=== PATIENT | female | born 1960 | race Caucasian/White ===

== ENCOUNTER → 2022-10-31 | Outpatient (CLI) | payer OTHER ==
--- NOTE | 2022-10-31 15:55 | MR ---
MRI thoracic spine without contrast. HISTORY: Mid back pain COMPARISON: None. TECHNIQUE: Multiplanar thoracic spine were obtained without contrast. FINDINGS: The thoracic vertebral segments are normal in height and alignment and there is no fracture subluxati on. There is no significant degenerative disc disease and there are no cervical disc herniations. The thoracic cord is normal in size and signal intensity and there is no thoracic spinal stenosis. The paraspinal soft tissues are unremarkable. IMPRESSION: No significant abnormality seen.
== END | disposition home or self-care (01) ==
LOC: RADMRIMAIN 15:02
PROVIDERS: ATTEND Internal Medicine
DX: M54.6 Pain in thoracic spine (principal); G89.29 Other chronic pain
CPT/HCPCS: 72146

== ENCOUNTER → 2022-11-17 | Outpatient (CLI) | payer OTHER ==
--- NOTE | 2022-11-17 22:15 | CTL ---
EXAMINATION TYPE: CT Low Dose Lung DATE OF EXAM ORDERED: 11/17/2022 HISTORY: Smoking. Lung cancer screening CT DLP: 63.[address] CTDI: 1.7 mGy Automated exposure control for dose reduction was used. SCREENING VISIT: Initial COMPARISON: None TECHNIQUE: Low dose computed tomography scan was performed through the chest at 1 mm thick sections a nd reconstructed images in the coronal plane at [address] DIAGNOSTIC QUALITY: Satisfactory FINDINGS: LUNG NODULES: None. LUNGS: COPD: Severity: None Fibrosis: Severity: None Lymph nodes: None Other findings: None RIGHT PLEURAL SPACE: Effusion: None Calcification: None Thickening: None Pneumothorax: None LEFT PLEURAL SPACE: Effusion: None Calcification: None Thickening: None Pneumothorax: None HEART: Heart Size: Normal Coronary calcification: Minimal Pericardial effusion: None OTHER FINDINGS: Upper abdomen: Normal Bony thorax: Normal Supraclavicular region: Normal Other: Ascending thoracic aorta at the level the main pulmonary artery measures 3.5 cm. The main pul monary artery at the bifurcation measures 2.7 cm. IMPRESSION: 1. No suspicious changes to suggest primary or metastatic neoplasm FOLLOW UP CT CHEST RECOMMENDATION: Low-dose CT chest one year CT LUNG RAD: Lung-Rad 1 Negative
== END | disposition home or self-care (01) ==
LOC: RADCTMAIN 12:35
PROVIDERS: ATTEND Internal Medicine
DX: Z12.2 Encounter for screening for malignant neoplasm of respiratory organs (principal); F17.210 Nicotine dependence, cigarettes, uncomplicated
CPT/HCPCS: 71271

== ENCOUNTER → 2022-12-01 | Outpatient (CLI) | payer OTHER ==
--- NOTE | 2022-12-01 13:42 | BD ---
EXAMINATION TYPE: Axial Bone Density DATE OF EXAM: 12/01/2022 CLINICAL HISTORY: 62 year old Female. ICD-10 CODE: [id number] ASYM POST ALTAF Height: 66 Weight: 138.3 FRAX RISK QUESTIONS: Alcohol (3 or more units per day): no Family History (Parent hip fracture): no Glucocorticoids (More than 3mos): no (Ex: prednisone, prednisolone, methylprednisolone, dexamethasone, and hydrocortisone). History of Fracture in Adulthood: no Secondary Osteoporosis: 1. Type 1 Diabetes: no 2. Hyperthyroidism: no 3. Menopause before 45: no 4. Malnutrition: no 5. Chronic liver disease: no Rheumatoid Arthritis: no Current Tobacco Use: yes RISK FACTORS HISTORY OF: Surgery to Spine/Hip(right/left)/Wrist (right/left): no Family History of Osteoporosis: yes Active: no Diet low in dairy products/other sources of calcium: yes Postmenopausal woman: yes Lost more than 2 inches in height since high school: no MEDICATIONS: Additional History: EXAM MEASUREMENTS: Bone mineral densitometry was performed using the [employer] System. Bone mineral density as measured about the Lumbar spine is: ----- L1-L4(G/cm2): 0.899 T Score Values are as follows: ----- L1: -1.6 ----- L2: -2.3 ----- L3: -2.3 ----- L4: -3.1 ----- L1-L4: -2.3 Z Score Values are as follows: ----- L1: -0.2 ----- L2: -0.9 ----- L3: -0.9 ----- L4: -1.7 ----- L1-L4: -1.0 Bone mineral density : baseline Bone mineral density about the R hip (g/cm2): 0.853 Bone mineral density about the L hip (g/cm2): 0.820 T Score values are as follows: -----R Neck: -1.2 -----L Neck: -1.6 -----R Total: -1.2 -----L Total: -1.5 Z Score values are as follows: -----R Neck: 0.1 -----L Neck: -0.3 -----R Total: -0.2 -----L Total: -0.5 Bone mineral density: baseline FRAX%s: The graph provided illustrates a 8.2% chance for a major osteoporotic fx and a 1.4% chance fo r the hips probability for fx in 10 years time. IMPRESSION: Osteopenia (T Score between -2.5 and -1). There is slightly increased risk of fracture and the patient may be considered for treatment. Re-Screen 2-5 years. NOTE: T-SCORE=SD OF THE YOUNG ADULT MEAN.
--- NOTE | 2022-12-03 06:49 | MM ---
Reason for Exam: Screening (asymptomatic). Last screening mammogram was performed 12 month(s) ago. Patient History: Menarche at age 14. First Full-Term at age 21. Postmenopausal. Patient has history of breast feeding. Risk Values: Analisa 5 year model risk: 1.3%. NCI Lifetime model risk: 6.4%. Prior Study Comparison: 10/24/2021 Bilateral Diagnostic Mammogram, [facility]. Tissue Density: The breast tissue is heterogeneously dense. This may lower the sensitivity of mammography. Findings: Analyzed By CAD. There are a few loosely grouped benign-appearing round calcifications in the left breast redemonstrated. There is no suspicious group of microcalcifications or new suspicious mass in either breast. Overall Assessment: Benign, BI-RAD 2 Management: Screening Mammogram of both breasts in 1 year. . Patient should continue monthly self-breast exams. A clinical breast exam by your physician is recommended on an annual basis. This exam should not preclude additional follow-up of suspicious palpable abnormalities. Note on Analisa scores and lifetime risk: 1. A Analisa score greater than 3% is considered moderate risk. If this is the case, consider specialist referral to assess eligibility for a risk reducing agent. 2. If overall lifetime risk for the development of breast cancer is 20% or higher, the patient may qualify for future screening with alternating mammogram and breast MRI. Electronically signed and approved by: Lexx Mcclure M.D.
== END | disposition home or self-care (01) ==
LOC: RADMAMWWP 10:59
PROVIDERS: ATTEND Internal Medicine
DX: Z12.31 Encounter for screening mammogram for malignant neoplasm of breast (principal); Z13.820 Encounter for screening for osteoporosis; M85.89 Other specified disorders of bone density and structure, multiple sites; Z78.0 Asymptomatic menopausal state
CPT/HCPCS: 77067; 77080

== ENCOUNTER → 2023-06-29 | Outpatient (CLI) | payer OTHER ==
--- NOTE | 2023-06-29 21:15 | XR ---
EXAMINATION TYPE: XR lumbosacral spine min 4V DATE OF EXAM: 06/29/2023 COMPARISON: None HISTORY: Low back pain, arthritis TECHNIQUE: 5 view lumbar spine FINDINGS: There are 5 lumbar-type vertebral bodies. Pedicles are intact. T12 ribs are rudimentary. Fa cets appear normal. No spondylolytic defects are evident. Disc heights are preserved. Vertebral body heights are preserved. Alignment is normal. IMPRESSION: 1. Unremarkable 5 view lumbar spine
== END | disposition home or self-care (01) ==
LOC: RADXRMAIN 13:05
PROVIDERS: ATTEND Family Medicine
DX: M54.50 Low back pain, unspecified (principal)
CPT/HCPCS: 72110